=== PATIENT | female | born 1965 | race Caucasian/White ===

== ENCOUNTER 2021-09-28 11:42 | Emergency (ER) | payer MEDICARE | END 2021-09-28 15:10 | disposition home or self-care (01) | LOC: ER1 11:42 | DX: S83.412A Sprain of medial collateral ligament of left knee, initial encounter (principal); I10 Essential (primary) hypertension; J45.909 Unspecified asthma, uncomplicated; Z87.891 Personal history of nicotine dependence; X50.9XXA Other and unspecified overexertion or strenuous movements or postures, initial encounter; Y92.009 Unspecified place in unspecified non-institutional (private) residence as the place of occurrence of the external cause | CPT/HCPCS: 29530; 73564; 93971; 99284 ==